=== PATIENT | female | born 1990 | race African-American/Black ===

== ENCOUNTER 2019-08-01 08:06 | Emergency (ER) | payer OTHER ==
[~2019-08-01] VITALS: Ht 348 cm; Wt 77.1 kg
[2019-08-01 08:16] VITALS: BP 140/95
[2019-08-01] MEDS ORDERED: IBUPROFEN 800 MG TAB PO ONE (09:45)
[2019-08-01] MEDS ORDERED: cefTRIAXone SOD 1,000 MG VL IM ONE (09:45)
== END 2019-08-01 10:18 | disposition home or self-care (01) ==
LOC: ER 08:14
DX: J03.90 Acute tonsillitis, unspecified (principal); F17.210 Nicotine dependence, cigarettes, uncomplicated
CPT/HCPCS: 96372; 99283; J0696

== ENCOUNTER 2020-11-10 16:13 | Emergency (ER) | payer OTHER ==
[~2020-11-10] VITALS: Ht 170.2 cm; Wt 79.4 kg
[2020-11-10] MEDS ORDERED: ACETAMINOPHEN/CODEINE#3 (300/30mg) TAB PO ONE (19:30)
[2020-11-10 19:52] VITALS: BP 128/86
== END 2020-11-10 21:15 | disposition home or self-care (01) ==
LOC: ER 16:13
DX: S29.019A Strain of muscle and tendon of unspecified wall of thorax, initial encounter (principal); S39.012A Strain of muscle, fascia and tendon of lower back, initial encounter; X58.XXXA Exposure to other specified factors, initial encounter; Y93.89 Activity, other specified; Y92.89 Other specified places as the place of occurrence of the external cause; Y99.8 Other external cause status
CPT/HCPCS: 72080; 81025